=== PATIENT | female | born 1970 | race Caucasian/White ===

== ENCOUNTER → 2016-10-08 | Outpatient (CLI) | payer BC ==
[~2016-10-08] MED LIST: AMLO-110 PO; B-COTAB18 PO; CALC500T83 PO; CHOL1000 PO; FLM4 PO; GLC/500 PO; GUAI1TAB75 PO; GUAN1TAB PO; METO25TA3 PO; MILN50TA PO; MOME50SP5; MULTTAB58 PO; PRT/20 PO; RST75 PO; SIMV10TA2 PO; ZYR/5 PO
--- NOTE | 2016-10-08 09:23 | DIAGNOSTIC IMAGING REPORT ---
ULTRASOUND RIGHT UPPER QUADRANT ABDOMEN CLINICAL HISTORY: Nausea. Right upper quadrant abdominal pain. COMPARISON STUDY: Abdominal CT dated 03/25/2015. TECHNIQUE: Real-time, grayscale, and color flow sonography of the right upper quadrant of the abdomen was performed. Images are reviewed in the transverse and longitudinal planes. FINDINGS: Liver: The liver is normal in size, contour, and echotexture. There is no intrahepatic biliary ductal dilatation. The main portal vein is patent. A 7 mm cyst is incidentally noted. Gallbladder: The gallbladder is normal in appearance. No gallstones are identified. There is no gallbladder wall thickening or pericholecystic fluid. A sonographic Muse's sign is reportedly absent. The common bile duct measures up to 0.4 cm in diameter. Pancreas: Visualized portions of the pancreatic head and body are normal in appearance. The splenic vein is patent. Right kidney: Survey images of the right kidney demonstrate normal size and echotexture. There is no hydronephrosis. Ascites: None. IMPRESSION: No acute sonographic abnormality is identified in the right upper quadrant. No gallstones are seen Electronically signed by: Will Sevilla M.D. 10/08/2016 9:22 AM Dictated Date/Time: 10/08/2016 9:15 AM
== END | disposition home or self-care (01) ==
LOC: C.ULTR 08:33
PROVIDERS: ATTEND Nurse Practitioner Family
DX: R10.11 Right upper quadrant pain (principal); R11.0 Nausea

== ENCOUNTER → 2016-12-27 | Outpatient (CLI) | payer BC ==
[~2016-12-27] MED LIST changes: +SINCALIDE INJ 1.7 MCG in SODIUM CHLORIDE 0.9% 100ML 100 ML IV SCH
--- NOTE | 2016-12-27 19:16 | DIAGNOSTIC IMAGING REPORT ---
NUCLEAR MEDICINE HEPATOBILIARY SCAN WITH GALLBLADDER EJECTION FRACTION CLINICAL HISTORY: Bloating and nausea. COMPARISON: Right upper quadrant ultrasound October 08, 2016. TECHNIQUE: 5.4 mCi of technetium 99m Choletec IV was injected at 10:45 AM on December 27, 2016. Immediately following injection, imaging of the abdomen was carried out for 60 minutes in the anterior projection. At this time, 1.7 mcg of Sincalide was injected IV as per protocol. Imaging was performed for an additional 45 minutes to estimate a gallbladder ejection fraction. FINDINGS: Hepatic uptake of radiotracer is prompt and homogeneous. Activity is identified within the common bile duct at 10 minutes, gallbladder 15 minutes and small bowel at 15 minutes. Following injection of sincalide, there was normal gallbladder emptying with an ejection fraction estimated at 88%. Normal is greater than 30-35%. IMPRESSION: 1. Normal hepatobiliary scan. No evidence of acute or chronic cholecystitis. 2. Normal gallbladder ejection fraction of 88%. Electronically signed by: Gilson Cruz M.D. 12/27/2016 7:14 PM Dictated Date/Time: 12/27/2016 7:13 PM
== END | disposition home or self-care (01) ==
LOC: C.NUCL 10:13
PROVIDERS: ATTEND Internal Medicine Gastroenterology
DX: R14.0 Abdominal distension (gaseous) (principal)

== ENCOUNTER 2017-07-03 02:51 | Emergency (ER) | payer BC, OTHER ==
[~2017-07-03] VITALS: Ht 172.7 cm; Wt 87.0 kg
[~2017-07-03 02:51] MED LIST changes: -METO25TA3 PO; +METO25TA4 PO; -SINCALIDE INJ 1.7 MCG in SODIUM CHLORIDE 0.9% 100ML 100 ML IV SCH
[2017-07-03 02:54] VITALS: TEMP 36.7; Ht 172.7 cm; Wt 87.0 kg
--- NOTE | 2017-07-03 03:40 | EMERGENCY ROOM VISIT NOTE ---
History Report prepared by Broderick: Adriano Nicolas Under the Supervision of: Dr. Azalia Hyman D.O. First contact with patient: 03:26 Chief Complaint: HEADACHE Stated Complaint: HEADACHE RT SIDE History of Present Illness The patient is a 47 year old female who presents to the Emergency Room with complaints of constant headache since yesterday afternoon. She reports a history of migraines, though states this one is worse. She denies any history of atypical migraines. No thunderclap onset. She notes the headache is waxing and waning. She currently rates her pain an 8/10 in severity. She states it feels as though her right eye is swollen. She notes the headache began on the right side and is radiating to her neck. She notes her head is tender to touch. She denies any vision changes, ear pain, or difficulty swallowing. She reports herniated discs in her neck with associated right arm tingling. She was recently on prednisone. She denies any recent dental procedure or history of TMJ. She reports intermittent dizziness and the world flips upside down for about 10 seconds at a time. She feels unsteady. She notes light sensitivity, though denies any noise sensitivity. She denies any cough, cold-like symptoms, changes in diet, or urinary symptoms. She reports intermittent nausea. She states that she normally vomits with her migraines, though she has not vomited. She reports sleep, MSG, and Gorgonzola cheese are triggers for her migraines. She states that she took Compazine and Imitrex yesterday, though no relief. Source of History: patient Onset: since yesterday afternoon Position: head Symptom Intensity: 8/10 Quality: ache Timing: constant Associated Symptoms: + neck pain, + nausea, No cough, No vomiting, No urinary symptoms Note: Notes right eye discomfort, dizziness, or light sensitivity. Denies any vision changes, ear pain, noise sensitivity, cold-like symptoms, changes in diet, or difficulty swallowing. Review of Systems See HPI for pertinent positives & negatives. A total of 10 systems reviewed and were otherwise negative. Past Medical & Surgical Medical Problems: (1) Flank pain (2) Obstructive uropathy (3) PCOS (polycystic ovarian syndrome) Surgical Problems: (1) Tubal ligation status Family History Cancer Hypertension Social History Smoking Status: Never Smoker Alcohol Use: none Drug Use: none Marital Status: Housing Status: lives with family Current/Historical Medications Scheduled B-Complex Vitamins (Vitamin B Complex), 1 TAB PO DAILY Cetirizine (Zyrtec), 10 MG PO DAILY Diclofenac (Voltaren), 50 MG PO DAILY Guaifenesin La (Guaifenesin Er), 600 MG PO Q12H Guanfacine Hcl (Tenex), 2 MG PO HS Magnesium (Magnesium), 500 MG PO DAILY Metformin Hcl (Glucophage), 500 MG PO BID Metoprolol Succinate (Toprol Xl), 25 MG PO DAILY Milnacipran Hcl (Savella), 75 MG PO BID Multiple Vitamin (Multivitamin), 1 TAB PO DAILY Pantoprazole (Protonix), 40 MG PO DAILY Scheduled PRN Naratriptan Hcl (Amerge), 2.5 MG PO DIRECTED PRN for Migraine Prochlorperazine Maleate (Compazine), 10 MG PO Q6H PRN for Nausea or Vomiting Allergies Coded Allergies: Chlorpheniramine (Verified Allergy, Mild, 07/03/17) Clavulanic Acid (Verified Allergy, Mild, "BETA LACTAMASE INH", 07/03/17) Penicillins (Verified Allergy, Mild, 07/03/17) Phenylpropanolamine (Verified Allergy, Mild, 07/03/17) Sulfa Antibiotics (Verified Allergy, Unknown, "SULFA", 07/03/17) Nortriptyline (Verified Adverse Reaction, Intermediate, ANGRY AND AGGRESSIVE, 07/03/17) Physical Exam Vital Signs Date Time Temp Pulse Resp B/P (MAP) Pulse Ox O2 Delivery O2 Flow Rate FiO2 07/03/17 08:00 64 18 121/84 97 Room Air 07/03/17 06:09 73 18 127/83 97 Room Air 07/03/17 04:39 56 131/ 07/03/17 02:54 36.7 73 18 143/93 99 Room Air Physical Exam GENERAL: alert, well appearing, well nourished, no distress, non-toxic HEAD: mild reproducible tenderness at right episcopal and right TMJ. No preauricular lymphadenopathy. EYE EXAM: normal conjunctiva, PERRL and EOM's grossly intact OROPHARYNX: no exudate, no erythema, lips, buccal mucosa, and tongue normal and mucous membranes are moist NECK: supple, no nuchal rigidity, no adenopathy, non-tender LUNGS: Clear to auscultation. Normal chest wall mechanics HEART: no murmurs, S1 normal and S2 normal ABDOMEN: abdomen soft, non-tender, normo-active bowel sounds, no masses, no rebound or guarding. BACK: Back is symmetrical on inspection and there is no deformity, no midline tenderness, no CVA tenderness. SKIN: no rashes and no bruising UPPER EXTREMITIES: upper extremities are grossly normal. LOWER EXTREMITIES: No pitting edema. NEURO EXAM: Normal sensorium, cranial nerves II-XII intact, normal speech, no weakness of arms, no weakness of legs. No drift. Finger to nose intact. Gross sensation intact. Medical Decision & Procedures ER Provider Diagnostic Interpretation: Radiology results have been interpreted by the radiologist and reviewed by me. ANGIOGRAPHY HEAD COMBO HISTORY: Headache mental status change TECHNIQUE: Multiaxial CT images of the head were performed both before and after the intravenous administration of contrast to evaluate the major cerebral vessels. Maximum intensity projection images were also obtained. A dose lowering technique was utilized adhering to the principles of ALARA. COMPARISON: None. FINDINGS: There is no mass, hematoma, midline shift, or acute infarct. Visualized intracranial internal carotid arteries, distal vertebral arteries, and basilar artery are widely patent. There is no significant stenosis, occlusion, or aneurysm seen within the bilateral ACAs, MCAs, or high pressure firer. IMPRESSION: No significant stenosis, occlusion, or aneurysm within the [place]. Negative CT of the brain The above report was generated using voice recognition software. It may contain grammatical, syntax or spelling errors. Electronically signed by: Roman Gurrola M.D. 07/03/2017 6:55 AM Dictated Date/Time: 07/03/2017 6:54 AM Laboratory Results 07/03/17 04:15 Red Blood Count 4.32, Mean Corpuscular Volume 90.3, Mean Corpuscular Hemoglobin 29.4, Mean Corpuscular Hemoglobin Concent 32.6, Mean Platelet Volume 9.6, Neutrophils (%) (Auto) 58.4, Lymphocytes (%) (Auto) 29.6, Monocytes (%) (Auto) 10.1, Eosinophils (%) (Auto) 0.9, Basophils (%) (Auto) 0.2, Neutrophils # (Auto ) 4.92, Lymphocytes # (Auto) 2.50, Monocytes # (Auto) 0.85, Eosinophils # (Auto ) 0.08, Basophils # (Auto) 0.02 07/03/17 04:15 Test 07/03/17 04:15 White Blood Count 8.44 K/uL (4.8-10.8) Red Blood Count 4.32 M/uL (4.2-5.4) Hemoglobin 12.7 g/dL (12.0-16.0) Hematocrit 39.0 % (37-47) Mean Corpuscular Volume 90.3 fL (80-100) Mean Corpuscular Hemoglobin 29.4 pg (25-34) Mean Corpuscular Hemoglobin Concent 32.6 g/dl (32-36) Platelet Count 357 K/uL (130-400) Mean Platelet Volume 9.6 fL (7.4-10.4) Neutrophils (%) (Auto) 58.4 % Lymphocytes (%) (Auto) 29.6 % Monocytes (%) (Auto) 10.1 % Eosinophils (%) (Auto) 0.9 % Basophils (%) (Auto) 0.2 % Neutrophils # (Auto) 4.92 K/uL (1.4-6.5) Lymphocytes # (Auto) 2.50 K/uL (1.2-3.4) Monocytes # (Auto) 0.85 K/uL (0.11-0.59) Eosinophils # (Auto) 0.08 K/uL (0-0.5) Basophils # (Auto) 0.02 K/uL (0-0.2) RDW Standard Deviation 51.1 fL (36.4-46.3) RDW Coefficient of Variation 15.4 % (11.5-14.5) Immature Granulocyte % (Auto) 0.8 % Immature Granulocyte # (Auto) 0.07 K/uL (0.00-0.02) Erythrocyte Sedimentation Rate 37 mm/hr (0-21) Prothrombin Time 9.1 SECONDS (9.0-12.0) Prothromb Time International Ratio 0.9 (0.9-1.1) Anion Gap 6.0 mmol/L (3-11) Est Creatinine Clear Calc Drug Dose 69.7 ml/min Estimated GFR () 65.9 Estimated GFR (Non- 56.8 BUN/Creatinine Ratio 14.7 (10-20) Calcium Level 8.8 mg/dl (8.5-10.1) Magnesium Level 2.3 mg/dl (1.8-2.4) Total Bilirubin 0.2 mg/dl (0.2-1) Aspartate Amino Transf (AST/SGOT) 10 U/L (15-37) Alanine Aminotransferase (ALT/SGPT) 20 U/L (12-78) Alkaline Phosphatase 97 U/L (45-117) Total Protein 7.8 gm/dl (6.4-8.2) Albumin 3.7 gm/dl (3.4-5.0) Globulin 4.1 gm/dl (2.5-4.0) Albumin/Globulin Ratio 0.9 (0.9-2) Thyroid Stimulating Hormone (TSH) 1.120 uIu/ml (0.300-4.500) Human Chorionic Gonadotropin, Qual NEG (NEG) Chemistry Specimen Hemolysis Laboratory results per my review. Medications Administered Medications (Trade) Dose Ordered Sig/Amando Route Start Time Stop Time Status Last Admin Dose Admin Sodium Chloride 1,000 ml @ 999 mls/hr Q1H1M STAT IV 07/03/17 03:46 07/03/17 04:46 DC 07/03/17 04:37 999 MLS/HR Acetaminophen 100 ml @ 400 mls/hr NOW STAT IV 07/03/17 03:46 07/03/17 04:00 DC 07/03/17 04:38 400 MLS/HR Ondansetron HCl (Zofran Inj) 4 mg NOW STAT IV 07/03/17 03:46 07/03/17 03:50 DC 07/03/17 04:37 4 MG Ketorolac Tromethamine (Toradol Inj) 30 mg NOW STAT IV 07/03/17 07:09 07/03/17 07:10 DC 07/03/17 07:25 30 MG ECG Per My Interpretation Indication: other (headache) Rate (beats per minute): 55 Rhythm: sinus bradycardia Findings: no acute ischemic change, no ectopy, other (Normal axis. Normal intervals. ) ED Course 0330: The patient was evaluated in room B8. A complete history and physical exam was performed. 0346: Ordered Zofran 4 mg IV, Acetaminophen 100 ml @ 400 mls/hr IV, and Sodium Chloride 1,000 ml @ 999 mls/hr IV 0702: I reassessed the patient at this time. She still has a headache, though she notes it is improved. 0709: Ordered Toradol 30 mg IV 0815: Patient states she feels well now. Has ambulated to the bathroom with a steady gait. Patient denies any other new or evolving symptoms. Discussed with patient all findings here. Using shared medical decision making we did discuss lumbar puncture, and patient declined. Discussed with patient I feel she is low risk for subarachnoid hemorrhage and has not had symptoms otherwise suggest meningitis/encephalitis. Patient does have a neurologist whom she sees , and I encouraged close follow-up with her neurologist. Discussed with her symptoms to watch and return for. Medical Decision Differential Diagnosis includes but is not limited to headache, tension headache , cluster headache, migraine, subarachnoid hemorrhage, meningitis, mass, central venous thrombus, concussion, trauma and epidural/subdural hemorrhage. Patient well-appearing here despite complaints and had a normal nonfocal neuro exam at bedside. Patient's vital signs stable throughout. Patient's labs and imaging reassuring. I have a low suspicion for subarachnoid hemorrhage or other intracranial hemorrhage. Patient has not recently had an illness, fevers , or other symptoms to suggest meningitis/encephalitis. I did discuss LP with patient at bedside and she declined. Discussed with her close follow-up with her neurologist, avoidance of any potential triggers for her usual migraines, discussed symptoms to watch and return for, she verbalized understanding was agreeable with plan. I feel this is most likely an atypical migraine or migraine variant at this time. I do not suspect a vasculitis, occult infection , acute cord compression or nerve injury. I do not suspect other cerebellar disease or dysfunction. I do not suspect other intraocular pathology or referred pain from dental pathology. Discussed with patient symptoms to watch and return for. I feel patient is reasonable to follow-up or return for any worsening symptoms. Medication Reconcilliation Current Medication List: was personally reviewed by me Blood Pressure Screening Patient's blood pressure: Elevated blood pressure Blood pressure disposition: Elevated BP felt to be situational Impression Primary Impression: Headache Scribe Attestation The scribe's documentation has been prepared under my direction and personally reviewed by me in its entirety. I confirm that the note above accurately reflects all work, treatment, procedures, and medical decision making performed by me. Departure Information Dispostion Home / Self-Care Referrals No Doctor, Assigned (PCP) Patient Instructions My [facility] Additional Instructions Please continue your regular medications as prescribed. If you have any recurrent or worsening symptoms, develop nausea or vomiting, dizziness, vision changes, numbness or tingling, or you have any other new concerns, please return the emergency room. Problem Qualifiers Primary Impression: Headache Headache type: unspecified Headache chronicity pattern: acute headache Intractability: not intractable Qualified Codes: R51 - Headache
[2017-07-03] MEDS ORDERED: LISI20TA3 PO (03:46)
[2017-07-03] MEDS ORDERED: ZCR20 PO (03:46)
[2017-07-03] MEDS ORDERED: ACETAMINOPHEN IV 100 ML IV STA (03:46)
[2017-07-03] MEDS ORDERED: LAMO25TA PO (03:46)
[2017-07-03] MEDS ORDERED: ONDANSETRON INJ 2 MG/ML 2 ML VIAL IV STA (03:46)
[2017-07-03] MEDS ORDERED: DICL50TA3 PO (03:46)
[2017-07-03] MEDS ORDERED: GABA100C13 PO (03:46)
[2017-07-03] MEDS ORDERED: SODIUM CHLORIDE 0.9% 1000ML 1,000 ML IV STA (03:46)
[2017-07-03] MEDS ORDERED: COLE1TAB4 PO (03:46)
[2017-07-03] MEDS ORDERED: MELO7.5T5 PO (03:46)
[2017-07-03] MEDS ORDERED: NRN/300 PO (03:46)
[2017-07-03] MEDS ORDERED: PANT40TA PO (03:46)
[2017-07-03] MEDS ORDERED: OPTIRAY 320 IV PRN (04:00)
[2017-07-03] MEDS ORDERED: NARA2.5T2 PO (04:04)
[2017-07-03] MEDS ORDERED: MILN50TA PO (04:04)
[2017-07-03] MEDS ORDERED: GUAN2TAB PO (04:04)
[2017-07-03] MEDS ORDERED: PROC1TAB5 PO (04:04)
[2017-07-03] MEDS ORDERED: CETI10TA84 PO (04:04)
[2017-07-03] MEDS ORDERED: MAGN500T15 PO (04:04)
[2017-07-03 04:34] LABS: BASO % 0.2 %; BASO ABS # 0.02 K/uL (0-0.2); EOS % 0.9 %; EOS ABS # 0.08 K/uL (0-0.5); HEMOGLOBIN 12.7 g/dL (12.0-16.0); IG# 0.07 K/uL (0.00-0.02); LYMPH % 29.6 %; MEAN CELL VOLUME 90.3 fL (80-100); MEAN CORPUSCULAR HEMOGLOBIN 29.4 pg (25-34); MEAN CORPUSCULAR HGB CONC 32.6 g/dl (32-36); MEAN PLATELET VOLUME 9.6 fL (7.4-10.4); MONO % 10.1 %; MONO ABS # 0.85 K/uL (0.11-0.59); NEUT % 58.4 %; NEUT ABS # 4.92 K/uL (1.4-6.5); PLATELET COUNT 357 K/uL (130-400); RED CELL DISTRIBUTION WIDTH CV 15.4 % (11.5-14.5); RED CELL DISTRIBUTION WIDTH SD 51.1 fL (36.4-46.3); WHITE BLOOD COUNT 8.44 K/uL (4.8-10.8)
[2017-07-03 04:42] LABS: INR 0.9 (0.9-1.1)
[2017-07-03 05:04] LABS: ALBUMIN 3.7 gm/dl (3.4-5.0); CALCIUM 8.8 mg/dl (8.5-10.1); CREATININE 1.14 mg/dl (0.60-1.20); POTASSIUM 4.2 mmol/L (3.5-5.1)
[2017-07-03 05:06] LABS: TOTAL PROTEIN 7.8 gm/dl (6.4-8.2)
--- NOTE | 2017-07-03 06:57 | DIAGNOSTIC IMAGING REPORT ---
ANGIOGRAPHY HEAD COMBO HISTORY: Headache mental status change TECHNIQUE: Multiaxial CT images of the head were performed both before and after the intravenous administration of contrast to evaluate the major cerebral vessels. Maximum intensity projection images were also obtained. A dose lowering technique was utilized adhering to the principles of ALARA. COMPARISON: None. FINDINGS: There is no mass, hematoma, midline shift, or acute infarct. Visualized intracranial internal carotid arteries, distal vertebral arteries, and basilar artery are widely patent. There is no significant stenosis, occlusion, or aneurysm seen within the bilateral ACAs, MCAs, or substation designer. IMPRESSION: No significant stenosis, occlusion, or aneurysm within the [place]. Negative CT of the brain The above report was generated using voice recognition software. It may contain grammatical, syntax or spelling errors. Electronically signed by: Roman Gurrola M.D. 07/03/2017 6:55 AM Dictated Date/Time: 07/03/2017 6:54 AM
[2017-07-03] MEDS ORDERED: KETOROLAC TROMETHAMINE 30 MG/ML VIAL IV STA (07:09)
[2017-07-03 08:44] VITALS: BP 118/78; PULSE 66; O2SAT 99
== END 2017-07-03 08:52 | disposition home or self-care (01) ==
LOC: C.EDB 02:52
DX: R51 Headache (principal); Z79.84 Long term (current) use of oral hypoglycemic drugs; Z79.899 Other long term (current) drug therapy; Z88.0 Allergy status to penicillin; Z88.2 Allergy status to sulfonamides; Z88.8 Allergy status to other drugs, medicaments and biological substances